=== PATIENT | female | born 1995 | race Asian ===

== ENCOUNTER 2017-06-08 01:19 | Emergency (ER) | payer OTHER ==
[2017-06-08 01:32] VITALS: BP 109/74; PULSE 89; TEMP 97.6; BMI 27.4
[2017-06-08] MEDS ORDERED: SODIUM CHLORIDE 1,000 ML IV STA (02:37)
--- NOTE | 2017-06-08 02:45 | PDOC ---
History of Present Illness - General Chief Complaint: Palpitations Stated Complaint: ANXIETY Time Seen by Provider: 06/08/17 02:07 - History of Present Illness Initial Comments: 06/08/17 02:40 The patient is a 22 yo F with no significant past medical history who presents with intermittent palpitations and shortness of breath for approximately 40 minutes. The patient states she was walking when she started to feel her heart racing and like she couldnt catch her breath. Denies CP. States that her symptoms gradually improved, although she states that she still occasionally feels the palpitations. The patient also notes shes been having diarrhea for the past 2 days. She denies nausea, vomiting and abdominal pain. The patient reports drinking 2 cups of coffee daily. Denies any other substance use. She denies LE edema. She denies recent travel. Not on OCPs, no h/o DVT/PE. Past History - Past Medical History Allergies/Adverse Reactions: Allergies Allergy/AdvReac Type Severity Reaction Status Date / Time No Known Allergies Allergy Verified 06/08/17 01:28 Home Medications: Ambulatory Orders NK [No Known Home Medication] 06/08/17 - Immunization History Immunization Up to Date: Yes - Psycho/Social/Smoking Cessation Hx Anxiety: No Suicidal Ideation: No Smoking History: Never smoked Have you smoked in the past 12 months: No Information on smoking cessation initiated: No Hx Alcohol Use: No Drug/Substance Use Hx: No Substance Use Type: None Review of Systems - Review of Systems Comments:: 06/08/17 02:42 "GENERAL/CONSTITUTIONAL: No fever or chills. No weakness. HEAD, EYES, EARS, NOSE AND THROAT: No change in vision. No ear pain or discharge. No sore throat. CARDIOVASCULAR: +shortness of breath, palpitations. No chest pain. RESPIRATORY: No cough, wheezing, or hemoptysis. GASTROINTESTINAL: +diarrhea No nausea, vomiting, constipation. GENITOURINARY: No dysuria, frequency, or change in urination. MUSCULOSKELETAL: No joint or muscle swelling or pain. No neck or back pain. SKIN: No rash NEUROLOGIC: No headache, vertigo, loss of consciousness, or change in strength/ sensation. ENDOCRINE: No increased thirst. No abnormal weight change. HEMATOLOGIC/LYMPHATIC: No anemia, easy bleeding, or history of blood clots. ALLERGIC/IMMUNOLOGIC: No hives or skin allergy. " *Physical Exam - Vital Signs Last Vital Signs Temp Pulse Resp BP Pulse Ox 97.6 F 89 20 109/74 100 06/08/17 01:30 06/08/17 01:30 06/08/17 01:30 06/08/17 01:30 06/08/17 01:30 - Physical Exam Comments: 06/08/17 02:42 "GENERAL: Awake, alert, and fully oriented, in no acute distress HEAD: No signs of trauma EYES: PERRLA, EOMI, sclera anicteric, conjunctiva clear ENT: Auricles normal inspection, hearing grossly normal, nares patent, oropharynx clear without exudates. Moist mucosa NECK: Normal ROM, supple, no lymphadenopathy, JVD, or masses LUNGS: Breath sounds equal, clear to auscultation bilaterally. No wheezes, and no crackles HEART: Regular rate and rhythm, normal S1 and S2, no murmurs, rubs or gallops ABDOMEN: Soft, nontender, normoactive bowel sounds. No guarding, no rebound. No masses EXTREMITIES: Normal range of motion, no edema. No clubbing or cyanosis. No cords, erythema, or tenderness NEUROLOGICAL: Cranial nerves II through XII grossly intact. Normal speech, normal gait SKIN: Warm, Dry, normal turgor, no rashes or lesions noted. " Heart Score/ECG Review - ECG Impressions Comment:: 06/08/17 02:43 NSR, no LISANDRA/STDs, TWI in I and II, R axis deviation, intervals wnl ED Treatment Course - LABORATORY CBC & Chemistry Diagram: 06/08/17 02:47 06/08/17 02:47 Medical Decision Making - Medical Decision Making 06/08/17 03:28 22 F with palpitations and SOB, vitals normal. Likely related to recent viral gastroenteritis. Will r/o PE with ddimer. ACS unlikely given age and lack of risk factors. Will also check TSH. - Labs - CXR - UA, UPT 06/08/17 04:46 CBC,CMP WBC 9.0 K/mm3 (4.0-10.0) D 06/08/17 02:47 RBC 4.96 M/mm3 (3.60-5.2) 06/08/17 02:47 Hgb 10.9 GM/dL (10.7-15.3) 06/08/17 02:47 Hct 33.9 % (32.4-45.2) 06/08/17 02:47 MCV 68.5 fl (80-96) L 06/08/17 02:47 MCH 22.0 pg (25.7-33.7) L 06/08/17 02:47 MCHC 32.2 g/dl (32.0-36.0) 06/08/17 02:47 RDW 16.8 % (11.6-15.6) H 06/08/17 02:47 Plt Count 353 K/MM3 (134-434) 06/08/17 02:47 MPV 7.6 fl (7.5-11.1) 06/08/17 02:47 Neutrophils % 64.3 % (42.8-82.8) 06/08/17 02:47 Lymphocytes % 28.0 % (8-40) 06/08/17 02:47 Monocytes % 6.5 % (3.8-10.2) 06/08/17 02:47 Eosinophils % 0.7 % (0-4.5) 06/08/17 02:47 Basophils % 0.5 % (0-2.0) 06/08/17 02:47 Sodium 140 mmol/L (136-145) 06/08/17 02:47 Potassium 3.6 mmol/L (3.5-5.1) 06/08/17 02:47 Chloride 108 mmol/L (98-107) H 06/08/17 02:47 Carbon Dioxide 25 mmol/L (21-32) 06/08/17 02:47 Anion Gap 7 (8-16) L 06/08/17 02:47 BUN 10 mg/dL (7-18) D 06/08/17 02:47 Creatinine 0.8 mg/dL (0.55-1.02) 06/08/17 02:47 Creat Clearance w eGFR > 60 (>60) 06/08/17 02:47 Random Glucose 101 mg/dL (74-106) 06/08/17 02:47 Calcium 8.5 mg/dL (8.5-10.1) 06/08/17 02:47 Total Bilirubin 0.2 mg/dL (0.2-1.0) D 06/08/17 02:47 AST 12 U/L (15-37) L 06/08/17 02:47 ALT 22 U/L (12-78) D 06/08/17 02:47 Alkaline Phosphatase 97 U/L (45-117) 06/08/17 02:47 Creatine Kinase 152 IU/L (26-192) 06/08/17 02:47 Troponin I < 0.02 ng/ml (0.00-0.05) 06/08/17 02:47 Total Protein 7.0 g/dl (6.4-8.2) 06/08/17 02:47 Albumin 3.5 g/dl (3.4-5.0) 06/08/17 02:47 TSH 5.57 uIU/ml (0.358-3.74) H 06/08/17 02:47 ddimer negative, CXR negative Pt reassessed - states that she feels much better after receiving fluids. Symptoms were likely 2/2 volume depletion from diarrhea. Pt to f/u with PMD *DC/Admit/Observation/Transfer Diagnosis at time of Disposition: Palpitations - Discharge Dispostion Disposition: HOME Condition at time of disposition: Good - Patient Instructions Printed Discharge Instructions: DI for Palpitations Additional Instructions: Drink plenty of fluids to stay hydrated. Follow up with your primary care doctor within 1 week for a re-evaluation and further work up of your palpitations. Return to the ER if you have worsening or persistent symptoms, chest pain, shortness of breath, or any other concerning symptoms.
[2017-06-08 02:56] LABS: BASOPHIL 0.5 % (0-2.0); EOSINOPHIL 0.7 % (0-4.5); MCHC 32.2 g/dl (32.0-36.0); MEAN CELL VOLUME 68.5 fl (80-96); MEAN PLT VOLUME 7.6 fl (7.5-11.1); NEUTROPHILS 64.3 % (42.8-82.8); PLATELET COUNT 353 K/MM3 (134-434); RDW 16.8 % (11.6-15.6)
[2017-06-08 03:08] LABS: URINE APPEARANCE CLEAR; URINE BILIRUBIN NEGATIVE (NEGATIVE); URINE BLOOD NEGATIVE (NEGATIVE); URINE COLOR STRAW; URINE GLUCOSE (UA) NEGATIVE (NEGATIVE); URINE KETONE NEGATIVE (NEGATIVE); URINE LEUK ESTERASE NEGATIVE (NEGATIVE); URINE NITRITE NEGATIVE (NEGATIVE); URINE PROTEIN NEGATIVE (NEGATIVE); URINE UROBILINOGEN NEGATIVE mg/dL (0.2-1.0)
[2017-06-08 03:29] LABS: CPK 152 IU/L (26-192); TROPONIN I < 0.02 ng/ml (0.00-0.05)
[2017-06-08 04:05] LABS: ALBUMIN 3.5 g/dl (3.4-5.0); ANION GAP 7 (8-16); BILIRUBIN,TOTAL 0.2 mg/dL (0.2-1.0); CALCIUM 8.5 mg/dL (8.5-10.1); CO2 25 mmol/L (21-32); CREATININE 0.8 mg/dL (0.55-1.02); GLUCOSE,RANDOM 101 mg/dL (74-106); SGOT/AST 12 U/L (15-37); SGPT/ALT 22 U/L (12-78)
[2017-06-08 04:06] LABS: ALK PHOS 97 U/L (45-117)
--- NOTE | 2017-06-08 11:01 | EKG ---
Test Reason : Blood Pressure : / mmHG Vent. Rate : 081 BPM Atrial Rate : 081 BPM P-R Int : 146 ms QRS Dur : 080 ms QT Int : 382 ms P-R-T Axes : 000 162 177 degrees QTc Int : 443 ms NORMAL SINUS RHYTHM WITH SINUS ARRHYTHMIA T WAVE ABNORMALITY LIKELY DUE TO REVERSED LEAD PLACEMENT ABNORMAL ECG NO PREVIOUS ECGS AVAILABLE Confirmed by CAMILLE PAT MD ([id number]) on 06/08/2017 11:00:58 AM Referred By: Confirmed By:CAMILLE PAT MD
== END 2017-06-08 05:08 | disposition home or self-care (01) ==
LOC: JER 01:19
PROC: 3E0337Z Introduction of Electrolytic and Water Balance Substance into Peripheral Vein, Percutaneous Approach (ICD-10-PCS; principal; 2017-06-08)
DX: R00.2 Palpitations (principal)
CPT/HCPCS: 36415; 71020-TC; 80053; 81003; 82553; 84443; 84484; 84703; 85025; 85379; 93005; 93010; 96360; 99284-25

== ENCOUNTER 2018-08-10 21:44 | Emergency (ER) | payer OTHER ==
[2018-08-10 21:54] VITALS: BP 158/88; PULSE 104; TEMP 98.6; BMI 29.9
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
== END 2018-08-10 23:55 | disposition home or self-care (01) ==
LOC: JER 21:44
DX: G44.309 Post-traumatic headache, unspecified, not intractable (principal); W20.8XXA Other cause of strike by thrown, projected or falling object, initial encounter; Y93.89 Activity, other specified; Y92.511 Restaurant or cafe as the place of occurrence of the external cause; Y99.0 Civilian activity done for income or pay
CPT/HCPCS: 70450-TC; 84703; 99281-25

== ENCOUNTER 2019-07-03 12:52 | Emergency (ER) | payer OTHER ==
[2019-07-03 12:57] VITALS: BP 131/70; PULSE 85; TEMP 97; BMI 29.9
--- NOTE | 2019-07-03 14:07 | PDOC ---
History of Present Illness - General Chief Complaint: Pain Stated Complaint: FALL / XRAY Time Seen by Provider: 07/03/19 13:00 - History of Present Illness Initial Comments: 07/03/19 13:59 CHIEF COMPLAINT: L knee pain HISTORY OF PRESENT ILLNESS: 24 yo presents to [facility] with pain to L knee x 2 days. Patient reports that she tripped on her shoelaces two days ago and has had persistent pain to her L knee since then. She describes the pain as a "burning whenever I touch it." She reports pain with flexion and extension of the knee. No recent travel or sick contacts. PAST MEDICAL HISTORY: Denies past medical history FAMILY HISTORY: Denies SOCIAL HISTORY: Denies tobacco, alcohol, illicit drug use. SURGICAL HISTORY: Denies ALLERGIES: No known drug allergies REVIEW OF SYSTEMS General/Constitutional: Denies fever or chills. Denies weakness, weight change. HEENT: Denies change in vision. Denies ear pain or discharge. Denies sore throat. Cardiovascular: Denies chest pain or shortness of breath. Respiratory: Denies cough, wheezing, or hemoptysis. Gastrointestinal: Denies nausea, vomiting, diarrhea or constipation. Denies rectal bleeding. Genitourinary: Denies dysuria, frequency, or change in urination. Musculoskeletal: Pain to R knee x 2 days. Denies joint or muscle swelling or pain. Denies neck or back pain. Skin and breasts: Denies rash or easy bruising. Neurologic: Denies headache, vertigo, loss of consciousness, or loss of sensation. Psychiatric: Denies depression or anxiety. Endocrine: Denies increased thirst. Denies abnormal weight change. Hematologic/Lymphatic: Denies anemia, easy bleeding, or history of blood clots. Allergic/Immunologic: Denies hives or skin allergy. Denies latex allergy. PHYSICAL EXAM General Appearance: Well-appearing, appropriately dressed. No apparent distress , no intoxication. HEENT: EOMI, PERRLA, normal ENT inspection, normal voice, TMs normal, pharynx normal. No conjunctival pallor. No photophobia, scleral icterus. Neck: Supple. Trachea midline. No tenderness, rigidity, carotid bruit, stridor , lymphadenopathy, or thyromegaly. Respiratory/Chest: Lungs CTAB. No shortness of breath, chest tenderness, respiratory distress, accessory muscle use. No crackles, rales, rhonchi, stridor , wheezing, dullness Cardiovascular: RRR. S1, S2. No JVD, murmur, bradycardia, tachycardia. Vascular Pulses: Dorsalis-Pedis (R): 2+, Dorsalis-Pedis (L): 2+ Gastrointestinal/Abdominal: Normal bowel sounds. Abdomen soft, non-distended. No tenderness or rebound tenderness. No organomegaly, pulsatile mass, guarding , hernia, hepatomegaly, splenomegaly. Lymphatic: No adenopathy, tenderness. Musculoskeletal/Extremities: Mild tenderness on palpation to L anterior knee. No deformity, no erythema, ecchymosis, swelling. FROM of all otherextremities, normal capillary refill. Pelvis Stable. No CVA tenderness. No tenderness to extremities, pedal edema, swelling, erythema or deformity. Integumentary: Appropriate color, dry, warm. No cyanosis, erythema, jaundice or rash Neurologic: organ tuner electronic II-XII intact. Fully oriented, alert. Appropriate mood/affect. Motor strength 5/5. No appreciable EOM palsy, facial droop or sensory deficit. Past History - Past Medical History Allergies/Adverse Reactions: Allergies Allergy/AdvReac Type Severity Reaction Status Date / Time No Known Allergies Allergy Verified 08/10/18 21:54 Home Medications: Ambulatory Orders Diclofenac Sodium 75 mg PO BID #20 tablet. 07/03/19 - Immunization History Immunization Up to Date: Yes - Suicide/Smoking/Psychosocial Hx Smoking History: Never smoked Have you smoked in the past 12 months: No Hx Alcohol Use: No Drug/Substance Use Hx: No Substance Use Type: None *Physical Exam - Vital Signs Last Vital Signs Temp Pulse Resp BP Pulse Ox 97 F L 85 20 131/70 99 07/03/19 12:54 07/03/19 12:54 07/03/19 12:54 07/03/19 12:54 07/03/19 12:54 ED Treatment Course - RADIOLOGY Radiology Studies Ordered: Category Date Time Status KNEE 3 POS-LEFT [RAD] Stat Radiology 07/03/19 13:18 Ordered Medical Decision Making - Medical Decision Making 07/03/19 14:08 24 yo presents to fast track with pain to L knee x 2 days. -toradol -xray x-ray negative knee immobilizer, f/u with ortho *DC/Admit/Observation/Transfer Diagnosis at time of Disposition: Knee injury Qualifiers: Encounter type: initial encounter Laterality: left Qualified Code(s): S89.92XA - Unspecified injury of left lower leg, initial encounter - Discharge Dispostion Disposition: HOME Condition at time of disposition: Stable Decision to Admit order: No - Prescriptions Prescriptions: Diclofenac Sodium 75 mg PO BID #20 tablet.dr - Referrals Referrals: Sharif Ferrara MD [Staff Physician] - - Patient Instructions Printed Discharge Instructions: DI for Knee Pain Additional Instructions: Please take medications as prescribed. Follow up with orthopedics if symptoms persist past 7-10 days. If you develop any new or worsening symptoms, please return to the ER. - Post Discharge Activity
[2019-07-03] MEDS ORDERED: KETOROLAC TROMETHAMINE 30 MG/1 ML VIAL IM ONE (14:08)
[2019-07-03] MEDS ORDERED: KETOROLAC TROMETHAMINE 30 MG/1 ML VIAL ONE (14:10)
== END 2019-07-03 14:16 | disposition home or self-care (01) ==
LOC: JERFT 12:52
PROC: 3E0233Z Introduction of Anti-inflammatory into Muscle, Percutaneous Approach (ICD-10-PCS; principal; 2019-07-03)
PROC: 2W3RXYZ Immobilization of Left Lower Leg using Other Device (ICD-10-PCS; 2019-07-03)
DX: S89.82XA Other specified injuries of left lower leg, initial encounter (principal); W18.09XA Striking against other object with subsequent fall, initial encounter; Y93.89 Activity, other specified; Y92.89 Other specified places as the place of occurrence of the external cause; Y99.8 Other external cause status
CPT/HCPCS: 29530; 73562-TC-LT-FY; 96372; 99281-25

== ENCOUNTER 2019-10-02 00:39 | Emergency (ER) | payer OTHER ==
[2019-10-02 00:46] VITALS: BP 144/92; PULSE 104; TEMP 98; BMI 29.9
[2019-10-02] MEDS ORDERED: SODIUM CHLORIDE FOR INHALATION 3 ML VIAL.NEB IH ONE (01:46)
[2019-10-02] MEDS ORDERED: ACETAMINOPHEN 325 MG TABLET (FP) PO ONE (01:46)
--- NOTE | 2019-10-02 01:46 | PDOC ---
History of Present Illness - General Chief Complaint: Cold Symptoms Stated Complaint: FLU LIKE SYMPTOMS Time Seen by Provider: 10/02/19 01:07 - History of Present Illness Initial Comments: Ayehsa Beltran is an otherwise healthy 24yo woman who presents with one day of cough, headache and now with upper chest pain with coughing. She reports that she took Dayquil several times today without any relief of her symptoms. The cough was not allowing her to sleep, so she presented for evaluation. Ms Beltran has not had any fever/chills, sweating, difficulty breathing, or sore throat. She does endorse nasal congestion, rhinorrhea, frontal headache and one episode of vomiting this evening. Past History - Past Medical History Allergies/Adverse Reactions: Allergies Allergy/AdvReac Type Severity Reaction Status Date / Time No Known Allergies Allergy Verified 10/02/19 00:57 Home Medications: Ambulatory Orders NK [No Known Home Medication] 10/02/19 COPD: No Other medical history: denies - Immunization History Immunization Up to Date: Yes - Psycho Social/Smoking Cessation Hx Smoking History: Never smoked Have you smoked in the past 12 months: No Information on smoking cessation initiated: No Hx Alcohol Use: No Drug/Substance Use Hx: No Substance Use Type: None Review of Systems - Review of Systems Comments:: General: No fevers, no chills, no weight or appetite change, no malaise HEENT: No changes in vision, no changes in hearing, + congestion, no sore throat CV: + chest pain, no palpitations, no LE edema Pulm: No SOB, + cough, no wheezing GI: + vomiting x1, no change in bowel habits, no melena : No frequency, no urgency, no dysuria Musc: No back pain, no joint swelling, no recent injury Skin: No rash, no lesions, no erythema Endo: No excessive thirst, no heat/cold intolerance Heme: No unusual bruising or bleeding, no swollen glands Neuro: No syncope, no numbness/tingling, no focal weakness Vasc: No claudication Psych: No recent change in mood, no SI or HI *Physical Exam - Vital Signs Last Vital Signs Temp Pulse Resp BP Pulse Ox 98.0 F 104 H 20 144/92 98 10/02/19 00:43 10/02/19 00:43 10/02/19 00:43 10/02/19 00:43 10/02/19 00:43 - Physical Exam General: Comfortable, no acute distress HEENT: PERRL, EOMI, MMM, voice normal, +clear rhinorrhea Cards: RRR, no murmur appreciated Pulm: Comfortable on room air, clear to auscultation bilaterally Abd: Soft, nontender, nondistended Ext: Atraumatic. No LE edema. ROM intact. WWP Skin: Normal color, no rashes or lesions Neuro: A&Ox3, CN grossly intact, normal speech, motor/sensory grossly intact and symmetric Psych: Mood appropriate to situation Medical Decision Making - Medical Decision Making 10/02/19 01:45 Ayesha Beltran is an otherwise healthy 24yo woman who presents with one day of cough, headache and now with upper chest pain with coughing. She reports that she took Dayquil several times today without any relief of her symtpoms. The cough was not allowing her to sleep, so she presented for evaluation. Ms Beltran has not had any fever/chills, sweating, difficulty breathing, or sore throat. She does endorse nasal congestion, rhinorrhea, frontal headache and one episode of vomiting this evening. - Most likely viral URI - Will send influenza swab. Discussed w/ patient that influenza is a virus and will improve over time, will not be treated. Pt wishes for flu to be sent - Acetaminophen for headache - Saline neb for cough 10/02/19 02:50 - Influenza negative - Will reassess, most likely d/c home with PMD follow up Discussed with Dr Hoang Mon PGY2 Discharge - Discharge Information Problems reviewed: Yes Clinical Impression/Diagnosis: Upper respiratory infection with cough and congestion Condition: Stable Disposition: HOME - Admission No - Follow up/Referral Referrals: Román Robles MD [Primary Care Provider] - - Patient Discharge Instructions Patient Printed Discharge Instructions: DI for Viral Upper Respiratory Infection -- Adult Additional Instructions: Discharge Instructions: You were seen in the emergency department for cough, headache, and congestion. You had a flu test sent that was negative. Your symptoms are most likely caused by a viral infection such as the common cold. You should feel better within a week without any additional treatment. Home Care and Follow Up: - Make sure you are drinking plenty of fluids while you are sick. Increase your normal fluid intake. It is OK if you do not feel like eating as long as you are staying well hydrated - You may use medications such as acetaminophen (Tylenol) 650-1000mg or ibuprofen (Advil, Motrin) 400-600mg every 6 hours as needed for pain or fever over 101F - Consider placing a humidifier in your room overnight to help relieve congestion and reduce drying of your nose and mouth. - Use throat lozenges (cough drops) for sore throat or cough - If you use additional cold medications, make sure they do not contain medicines you are already taking such as acetaminophen or ibuprofen - You should feel better within a week, though cough can sometimes last longer. If you are not feeling better in a week, follow up with your primary doctor. - Seek immediate care if you have worsening symptoms, you are unable to stay hydrated, you develop high fevers over 104F that do not come down with medication, or you have any other medical emergency. - Post Discharge Activity
[2019-10-02] MEDS ORDERED: ACETAMINOPHEN 325 MG TABLET (FP) ONE (01:50)
== END 2019-10-02 03:06 | disposition home or self-care (01) ==
LOC: JER 00:39
PROC: 3E0F7GC Introduction of Other Therapeutic Substance into Respiratory Tract, Via Natural or Artificial Opening (ICD-10-PCS; principal; 2019-10-02)
DX: J06.9 Acute upper respiratory infection, unspecified (principal)
CPT/HCPCS: 87804; 99281-25

== ENCOUNTER 2021-01-18 21:23 | Emergency (ER) | payer OTHER ==
[2021-01-18 21:40] VITALS: BP 144/84; TEMP 99.3; BMI 32.4
[2021-01-18] MEDS ORDERED: ONDANSETRON 4 MG/2 ML VIAL IVPUSH ONE (22:05)
[2021-01-18] MEDS ORDERED: FAMOTIDINE 20 MG/50 ML IVPB 20 MG/50 ML MG IVPB ONE ×2 (22:05→22:51)
[2021-01-18] MEDS ORDERED: SODIUM CHLORIDE 0.9% 500 ML INFUS.BAG IV ONE (22:05)
[2021-01-18] MEDS ORDERED: ACETAMINOPHEN 1000 MG/100 ML VIAL (NON FORMULARY) IVPB ONE (22:05)
[2021-01-18] MEDS ORDERED: ACETAMINOPHEN INJECTION 100 ML IVPB ONE (22:50)
[2021-01-18] MEDS ORDERED: ONDANSETRON 4 MG/2 ML VIAL ONE (22:50)
[2021-01-18 22:56] LABS: BASO % 0.2 % (0-2.0); EOS % 0.1 % (0-4.5); HEMATOCRIT 37.5 % (32.4-45.2); HEMOGLOBIN 12.1 GM/dL (10.7-15.3); MCH 21.5 pg (25.7-33.7); MCHC 32.2 g/dl (32.0-36.0); MEAN CELL VOLUME 66.8 fl (80-96); MEAN PLT VOLUME 7.9 fl (7.5-11.1); MONO % 6.3 % (3.8-10.2); NEUT % 78.4 % (42.8-82.8); PLATELET COUNT 258 K/MM3 (134-434); RBC 5.62 M/mm3 (3.60-5.2); RDW 17.6 % (11.6-15.6); WHITE BLOOD COUNT 6.7 K/mm3 (4.0-10.0)
[2021-01-18 23:01] LABS: INR 1.24 (0.83-1.09); PROTHROMBIN TIME (PATIENT) 15.2 SEC (9.7-13.0)
[2021-01-18 23:15] LABS: ALBUMIN 3.9 g/dl (3.4-5.0); CALCIUM 9.6 mg/dL (8.5-10.1)
[2021-01-18 23:16] LABS: BLOOD UREA NITROGEN 8.6 mg/dL (7-18)
[2021-01-18 23:18] LABS: BILIRUBIN,DIRECT 0.1 mg/dL (0.0-0.2); CREATININE 0.7 mg/dL (0.55-1.3)
[2021-01-18 23:19] LABS: PHOSPHOROUS 2.9 mg/dL (2.5-4.9)
[2021-01-18 23:20] LABS: BILIRUBIN,TOTAL 0.2 mg/dL (0.2-1); TOT PROT 7.9 g/dl (6.4-8.2)
[2021-01-18 23:58] LABS: POTASSIUM 3.7 mmol/L (3.5-5.1)
[2021-01-19 00:21] VITALS: PULSE 98
[2021-01-19 01:18] LABS: ANISOCYTOSIS 2+; MACROCYTOSIS 0; PLATELET ESTIMATE NORMAL
== END 2021-01-19 00:30 | disposition home or self-care (01) ==
LOC: JER 21:23
PROC: 3E0333Z Introduction of Anti-inflammatory into Peripheral Vein, Percutaneous Approach (ICD-10-PCS; principal; 2021-01-18)
PROC: 3E033GC Introduction of Other Therapeutic Substance into Peripheral Vein, Percutaneous Approach (ICD-10-PCS; 2021-01-18)
PROC: 3E033GC Introduction of Other Therapeutic Substance into Peripheral Vein, Percutaneous Approach (ICD-10-PCS; 2021-01-18)
DX: U07.1 COVID-19 (principal)
CPT/HCPCS: 36415; 80053; 82248; 82728; 83605; 83615; 83735; 84100; 84703; 85025; 85610; 86140; 99284-25; C9803; J0131; U0003; U0005

== ENCOUNTER 2021-02-08 17:25 | Emergency (ER) | payer OTHER ==
[2021-02-08 17:37] VITALS: BP 140/97; PULSE 112; TEMP 98.2; BMI 31.8
== END 2021-02-08 18:01 | disposition home or self-care (01) ==
LOC: JERFT 17:25
DX: M79.622 Pain in left upper arm (principal)
CPT/HCPCS: 99281-25

== ENCOUNTER 2022-01-31 13:27 | Emergency (ER) | payer OTHER ==
[2022-01-31 13:37] VITALS: BP 116/72; PULSE 82; TEMP 97.7; BMI 30.2
[2022-01-31] MEDS ORDERED: DEXAMETHASONE SOD PHOSPHATE 10 MG/1 ML VIAL PO ONE (14:33)
[2022-01-31] MEDS ORDERED: ACETAMINOPHEN 500 MG TABLET (FP) PO ONE (14:33)
== END 2022-01-31 15:10 | disposition home or self-care (01) ==
LOC: JERFT 13:27
DX: J01.90 Acute sinusitis, unspecified (principal)
CPT/HCPCS: 99283-25; J1100

== ENCOUNTER 2022-05-13 19:41 | Emergency (ER) | payer OTHER ==
[2022-05-13 19:58] VITALS: BP 143/86; PULSE 100; RESP 20; TEMP 98.1; BMI 30.7
[2022-05-13] MEDS ORDERED: ACETAMINOPHEN 500 MG TABLET (FP) PO ONE (21:44)
[2022-05-13] MEDS ORDERED: ACETAMINOPHEN INJECTION 100 ML IVPB ONE (21:47)
[2022-05-13] MEDS ORDERED: ACETAMINOPHEN 1000 MG/100 ML BAG IVPB ONE (21:47)
[2022-05-13] MEDS ORDERED: SODIUM CHLORIDE 0.9% 500 ML INFUS.BAG IV ONE (21:47)
[2022-05-13 22:08] LABS: BASO % 0.5 % (0-2.0); EOS % 0.8 % (0-4.5); HEMATOCRIT 35.4 % (32.4-45.2); HEMOGLOBIN 11.3 GM/dL (10.7-15.3); LYMPH % 33.9 % (8-40); MCH 23.1 pg (25.7-33.7); MEAN CELL VOLUME 72.2 fl (80-96); MEAN PLT VOLUME 7.8 fl (7.5-11.1); MONO % 6.2 % (3.8-10.2); NEUT % 58.6 % (42.8-82.8); PLATELET COUNT 327 10^3/uL (134-434); RBC 4.91 M/mm3 (3.60-5.2); RDW 16.2 % (11.6-15.6); WHITE BLOOD COUNT 10.5 K/mm3 (4.0-10.0)
[2022-05-13 22:23] LABS: CALCIUM 8.7 mg/dL (8.5-10.1)
[2022-05-13 22:24] LABS: ALBUMIN 3.6 g/dl (3.4-5.0); BLOOD UREA NITROGEN 13.8 mg/dL (7-18)
[2022-05-13 22:27] LABS: CREATININE 0.8 mg/dL (0.55-1.3)
[2022-05-13 22:29] LABS: BILIRUBIN,TOTAL 0.2 mg/dL (0.2-1)
[2022-05-13 22:32] LABS: TOT PROT 7.4 g/dl (6.4-8.2)
[2022-05-14 00:53] LABS: PH,URINE 6.5 (5.0-8.0); URINE APPEARANCE CLEAR; URINE BILIRUBIN NEGATIVE (NEGATIVE); URINE COLOR YELLOW; URINE GLUCOSE (UA) NEGATIVE (NEGATIVE); URINE KETONE 1+ (NEGATIVE); URINE LEUK ESTERASE NEGATIVE (NEGATIVE); URINE NITRITE NEGATIVE (NEGATIVE); URINE PROTEIN NEGATIVE (NEGATIVE)
[2022-05-14 01:15] LABS: HCG,QUALITATIVE URINE Negative
== END 2022-05-14 04:06 | disposition home or self-care (01) ==
LOC: JER 19:41
PROC: 3E0333Z Introduction of Anti-inflammatory into Peripheral Vein, Percutaneous Approach (ICD-10-PCS; principal; 2022-05-13)
DX: R10.9 Unspecified abdominal pain (principal)
CPT/HCPCS: 36415; 74177-TC; 76856-TC; 80053; 81003; 84703; 85025; 87086; 99285-25; Q9967

== ENCOUNTER 2024-05-24 04:16 | Emergency (ER) | payer OTHER ==
[2024-05-24 04:22] VITALS: BP 152/96; PULSE 92; RESP 18; TEMP 97.7; BMI 32.4
[2024-05-24] MEDS: SODIUM CHLORIDE 1,000 ML IV STA (05:14)
[2024-05-24 05:44] LABS: BASO % 0.3 % (0-2.0); EOS % 1.1 % (0-4.5); HEMATOCRIT 32.8 % (32.4-45.2); HEMOGLOBIN 10.4 GM/dL (10.7-15.3); MCH 21.8 pg (25.7-33.7); MCHC 31.8 g/dl (32.0-36.0); MEAN CELL VOLUME 68.5 fl (80-96); MEAN PLT VOLUME 7.1 fl (7.5-11.1); MONO % 4.8 % (3.8-10.2); NEUT % 68.8 % (42.8-82.8); PLATELET COUNT 323 10^3/uL (134-434); RBC 4.79 M/mm3 (3.60-5.2); RDW 17.5 % (11.6-15.6); WHITE BLOOD COUNT 8.6 K/mm3 (4.0-10.0)
[2024-05-24 06:16] LABS: POTASSIUM 4.1 mmol/L (3.5-5.1)
[2024-05-24 06:18] LABS: CALCIUM 8.8 mg/dL (8.5-10.1)
[2024-05-24 06:19] LABS: ALBUMIN 3.2 g/dl (3.4-5.0)
[2024-05-24 06:22] LABS: CREATININE 0.7 mg/dL (0.55-1.3)
[2024-05-24 06:24] LABS: BILIRUBIN,TOTAL 0.2 mg/dL (0.2-1); TOT PROT 6.6 g/dl (6.4-8.2)
[2024-05-24 06:34] LABS: HCG,QUALITATIVE URINE Positive
[2024-05-24 06:38] LABS: EPI CELLS 16 /uL (0-25.1); HYALINE CASTS 0 /uL (0-3.1); URINE APPEARANCE CLEAR; URINE BACTERIA 671 /uL (0-1359); URINE BILIRUBIN NEGATIVE (NEGATIVE); URINE COLOR YELLOW; URINE GLUCOSE (UA) NEGATIVE (NEGATIVE); URINE KETONE NEGATIVE (NEGATIVE); URINE LEUK ESTERASE NEGATIVE (NEGATIVE); URINE NITRITE NEGATIVE (NEGATIVE); URINE PROTEIN NEGATIVE (NEGATIVE); URINE RBC 6 /uL (0-23.9); URINE UROBILINOGEN 0.2 mg/dL (0.2-1.0); URINE WBC 9 /uL (0-25.8)
[2024-05-24 10:42] LABS: ANISOCYTOSIS 0; MACROCYTOSIS 0
== END 2024-05-24 10:17 | disposition home or self-care (01) ==
LOC: JER 04:16
PROC: 3E0337Z Introduction of Electrolytic and Water Balance Substance into Peripheral Vein, Percutaneous Approach (ICD-10-PCS; principal; 2024-05-24)
DX: O20.9 Hemorrhage in early pregnancy, unspecified (principal); O26.891 Other specified pregnancy related conditions, first trimester; R10.30 Lower abdominal pain, unspecified; Z3A.01 Less than 8 weeks gestation of pregnancy
CPT/HCPCS: 36415; 76830-TC; 80053; 81003; 84702; 84703; 85025; 86850; 86900; 86901; 99284-25

== ENCOUNTER 2024-05-26 11:48 | Emergency (ER) | payer OTHER ==
[2024-05-26 12:15] VITALS: BP 123/83; PULSE 74; RESP 16; TEMP 98.6; BMI 32.4
== END 2024-05-26 13:46 | disposition home or self-care (01) ==
LOC: JER 11:48 → JERFT 11:48
DX: O03.9 Complete or unspecified spontaneous abortion without complication (principal)
CPT/HCPCS: 36415; 84702; 99283-25

== ENCOUNTER 2024-10-12 20:16 | Emergency (ER) | payer OTHER ==
[2024-10-12 20:28] VITALS: BP 144/97; PULSE 118; RESP 18; TEMP 98.6; BMI 32.6
[2024-10-12 21:03] LABS: HEMATOCRIT 38.4 % (32.4-45.2); HEMOGLOBIN 12.3 G/dL (10.7-15.3); MCHC 32.1 g/dl (32.0-36.0); MEAN CELL VOLUME 68.4 fl (80-96); MEAN PLT VOLUME 7.8 fl (7.5-11.1); RBC 5.61 10^6/uL (3.60-5.2); RDW 18.8 % (11.6-15.6)
[2024-10-12 21:32] LABS: ALBUMIN 4.5 g/dl (3.4-5.0); BILIRUBIN,TOTAL 0.5 mg/dl (0.2-1); CALCIUM 9.9 mg/dl (8.5-10.1); CREATININE 0.8 mg/dl (0.6-1.3); TOT PROT 7.5 g/dl (6.4-8.2)
[2024-10-12 22:50] LABS: HIV INTERPRETATION NEGATIVE (NEGATIVE)
== END 2024-10-12 23:30 | disposition home or self-care (01) ==
LOC: FER 20:16
DX: O20.0 Threatened abortion (principal); Z3A.01 Less than 8 weeks gestation of pregnancy
CPT/HCPCS: 36415; 76817-TC; 80053; 84702; 85027; 86803; 86850; 86900; 86901; 87389; 99284-25

== ENCOUNTER 2024-10-15 12:29 | Emergency (ER) | payer OTHER ==
[2024-10-15 12:36] VITALS: BP 142/86; PULSE 91; RESP 16; TEMP 97.3; BMI 32.4
[2024-10-15 13:39] LABS: BASO % 0.5 % (0-2.0); EOS % 1.1 % (0-4.5); HEMATOCRIT 33.4 % (32.4-45.2); HEMOGLOBIN 10.3 GM/dL (10.7-15.3); LYMPH % 36.4 % (8-40); MCH 20.9 pg (25.7-33.7); MCHC 30.9 g/dl (32.0-36.0); MEAN CELL VOLUME 67.7 fl (80-96); MEAN PLT VOLUME 7.1 fl (7.5-11.1); MONO % 6.5 % (3.8-10.2); NEUT % 55.5 % (42.8-82.8); PLATELET COUNT 305 10^3/uL (134-434); RBC 4.93 M/mm3 (3.60-5.2); RDW 18.3 % (11.6-15.6); WHITE BLOOD COUNT 5.4 K/mm3 (4.0-10.0)
[2024-10-15 14:12] LABS: CALCIUM 9.2 mg/dL (8.5-10.1); POTASSIUM 4.3 mmol/L (3.5-5.1)
[2024-10-15 14:13] LABS: BLOOD UREA NITROGEN 8.5 mg/dL (7-18)
[2024-10-15 14:16] LABS: CREATININE 0.7 mg/dL (0.55-1.3)
[2024-10-15 14:21] LABS: ANISOCYTOSIS 2+; MACROCYTOSIS 0
[2024-10-15] MEDS ORDERED: ACETAMINOPHEN 500 MG TABLET (FP) ONE (16:15)
[2024-10-15] MEDS: ACETAMINOPHEN 500 MG TABLET (FP) PO ONE (16:16)
== END 2024-10-15 19:04 | disposition home or self-care (01) ==
LOC: JERFT 12:29
DX: O03.9 Complete or unspecified spontaneous abortion without complication (principal)
CPT/HCPCS: 36415; 76817-TC; 80048; 84702; 85025; 99284-25